=== PATIENT | female | born 1980 | race Caucasian/White ===

== ENCOUNTER 2021-01-04 19:39 | Inpatient (IN) | payer BC ==
[2021-01-04] MEDS ORDERED: Nalbuphine 10 MG/1 ML Vial IVPUSH PRN (19:55)
[2021-01-04] MEDS ORDERED: Lidocaine 1% 50 ML MDV INJECT PRN (19:55)
[2021-01-04] MEDS ORDERED: Sodium Chloride 0.9% 10 ML SDV IV PRN (19:55)
[2021-01-04] MEDS ORDERED: Butorphanol 1 MG/ML SDV IVPUSH PRN (19:55)
[2021-01-04] MEDS ORDERED: Ondansetron 4 MG/2 ML SDV IVPUSH PRN ×2 (19:55→23:22)
[2021-01-04] MEDS ORDERED: Methylergonovine 0.2 MG/1 ML Amp IM PRN (19:55)
[2021-01-04] MEDS ORDERED: Tranexamic Acid 1,000 MG in Sodium Chloride 0.9% 100 ML IV PRN (19:55)
[2021-01-04] MEDS ORDERED: Citric Acid/Sodium Citrate Solution 30 ML Cup PO ONE (19:55)
[2021-01-04] MEDS ORDERED: Misoprostol 200 MCG Tab PO PRN (19:55)
[2021-01-04] MEDS ORDERED: Water For Irrigation,Sterile 1,000 ML Container IRR PRN (19:55)
[2021-01-04] MEDS ORDERED: ceFAZolin 2 GM in Premix Bag 1 BAG IV ONE (19:55)
[2021-01-04] MEDS ORDERED: Carboprost Tromethamine 250 MCG/1 ML Amp IM PRN (19:55)
[2021-01-04] MEDS ORDERED: Lactated Ringers 1,000 ML IV SCH (20:00)
[2021-01-04] MEDS ORDERED: Oxytocin/0.9 % Sodium Chloride 30 UNIT/500 ML BAG IV SCH ×2 (20:00)
[2021-01-04] MEDS: Lactated Ringers 1,000 ML IV SCH ×2 (20:32→21:29)
[2021-01-04] MEDS ORDERED: Morphine PF 10 MG/10 ML SDV ONE (21:39)
[2021-01-04] MEDS ORDERED: fentaNYL 100 MCG/2 ML SDV ONE (21:39)
[2021-01-04] MEDS ORDERED: Sodium Chloride 0.9% 20 ML ONE (22:19)
[2021-01-04] MEDS ORDERED: ceFAZolin 1 GM Vial ONE (22:19)
[2021-01-04] MEDS ORDERED: Oxytocin 10 Units/1 ML SDV ONE (22:58)
[2021-01-04] MEDS ORDERED: Ondansetron 4 MG/2 ML SDV ONE (22:58)
[2021-01-04] MEDS ORDERED: Ketorolac 30 MG/ML SDV ONE (22:58)
[2021-01-04] MEDS ORDERED: Acetaminophen/oxyCODONE 325-5 MG Tab PO PRN (23:22)
[2021-01-04] MEDS ORDERED: Bisacodyl 10 MG Supp RECTAL PRN (23:22)
[2021-01-04] MEDS ORDERED: Ibuprofen 800 MG Tab PO PRN (23:22)
[2021-01-04] MEDS ORDERED: Lanolin 100% Cream 7 GM Tube TOP PRN (23:22)
[2021-01-04] MEDS ORDERED: diphenhydrAMINE 50 MG/ML SDV IVPUSH PRN (23:22)
--- NOTE | 2021-01-04 23:25 | PCM.OPNOTE ---
<Blossom Morales - Last Filed: 01/04/21 23:20> - General Post-Op/Procedure Note Date of Surgery/Procedure: 01/04/21 Operative Procedure(s): Repeat section x6, perfomed before originally scheduled due to SROM Findings: Live male infant, cephalic presentation, 3540g, apgars 6 and 9 Placenta intact, 3 vessel cord Normal appearing uterus, ovaries, and tubes Pre Op Diagnosis: 40yo F, 39w1d gestation repeat x6 Post-Op Diagnosis: Same Anesthesia Technique: Spinal Primary Surgeon: Clari Cruz Secondary Surgeon: Kierra Singh Anesthesia Provider: Andi Mo Bpm Solution Architect: Blossom Morales Pathology: placenta Fluid Replacement, Intraop: 1,500 Output, Urine Amount: 200 EBL in mLs: 600 Complications: None Condition: Good Free Text/Narrative:: Ancef 2g IV for prophylaxis <Clari Cruz - Last Filed: 01/04/21 23:35> - General Post-Op/Procedure Note Findings: Nuchal cord x1 Moderate adhesions of rectus muscles and omentum to fascia Pre Op Diagnosis: Spontaneous rupture of membranes. Advanced maternal age. Gestational diabetes on Metformin. Bicornuate uterus. History of bilateral tubal ligation s/p reversal. GBS negative Post-Op Diagnosis: Same Pathology: Cord blood and gases Complications: None Free Text/Narrative:: Intake & Output 01/04/21 01/04/21 01/05/21 14:59 22:59 06:59 Intake Total 1500 Output Total 200 Balance 1300 Surgicel placed on rectus muscles. Rh negative, Rhogam ordered. I have reviewed the above and agree. Please see operative report #[id number] for further details.
[2021-01-04] MEDS ORDERED: Promethazine 25 MG/ML SDV IM PRN (23:35)
[2021-01-04] MEDS ORDERED: Promethazine 25 MG Tab PO PRN (23:35)
[2021-01-05] MEDS ORDERED: Nalbuphine 10 MG/1 ML Vial IVPUSH PRN (00:06)
[2021-01-05] MEDS ORDERED: Ondansetron 4 MG/2 ML SDV IVPUSH PRN (00:06)
[2021-01-05] MEDS ORDERED: fentaNYL 100 MCG/2 ML SDV IVPUSH PRN (00:06)
[2021-01-05] MEDS ORDERED: Naloxone 0.4 MG/ML Syringe IVPUSH PRN (00:06)
[2021-01-05] MEDS ORDERED: diphenhydrAMINE 50 MG/ML SDV IVPUSH PRN (00:06)
[2021-01-05] MEDS ORDERED: Acetaminophen/oxyCODONE 325-5 MG Tab PO PRN (00:06)
[2021-01-05] MEDS ORDERED: ePHEDrine 50 MG/ML SDV IVPUSH PRN (00:06)
--- NOTE | 2021-01-05 00:06 | PCM.PREANE ---
Preanesthetic Assessment - Anesthesia/Transfusion/Family Hx Anesthesia History: Prior Anesthesia Without Reaction Family History of Anesthesia Reaction: No Transfusion History: No Prior Transfusion(s) - Review of Systems General: No Symptoms Pulmonary: No Symptoms Cardiovascular: No Symptoms Gastrointestinal: No Symptoms Neurological: No Symptoms Other: Reports: None - Physical Assessment NPO Status Date: 01/04/21 NPO Status Time: 18:00 Height: 5 ft 6 in Weight: 200 lb ASA Class: 2E Mental Status: Alert & Oriented x3 Airway Class: Mallampati = 3 Dentition: Reports: Normal Dentition ROM/Head Extension: Full Lungs: Clear to Auscultation, Normal Respiratory Effort Cardiovascular: Regular Rate, Regular Rhythm - Lab Values: Laboratory Last Values WBC 11.96 K/uL (4.0-11.0) H 01/04/21 20: RBC 4.39 M/uL (4.30-5.90) 01/04/21 20: Hgb 12.0 g/dL (12.0-16.0) 01/04/21 20: Hct 36.1 % (36.0-46.0) 01/04/21 20: MCV 82.2 fL (80.0-98.0) 01/04/21 20: MCH 27.3 pg (27.0-32.0) 01/04/21 20: MCHC 33.2 g/dL (31.0-37.0) 01/04/21 20:26 RDW Std Deviation 42.7 fl (28.0-62.0) 01/04/21 20:26 RDW Coeff of Chung 14 % (11.0-15.0) 01/04/21 20:26 Plt Count 371 K/uL (150-400) 01/04/21 20:26 MPV 12.20 fL (7.40-12.00) H 01/04/21 20:26 Nucleated RBC % 0.0 /100WBC 01/04/21 20:26 Nucleated RBCs # 0 K/uL 01/04/21 20:26 Cord ABG pH 7.281 (7.18-7.38) 01/04/21 22:26 Cord ABG Base Excess -3 (-10--2) 01/04/21 22:26 Cord VBG pH 7.301 (7.25-7.45) 01/04/21 22:26 Cord VBG Base Excess -4 (-10--2) 01/04/21 22:26 Membrane Rupture POSITIVE 01/04/21 19:47 Blood Type O NEGATIVE 01/04/21 20:26 Antibody Screen NEGATIVE 01/04/21 20:26 - Allergies Allergies/Adverse Reactions: Allergies Allergy/AdvReac Type Severity Reaction Status Date / Time No Known Allergies Allergy Verified 01/01/21 08:27 - Blood Blood Available: Yes Product(s) Available: PRBC - Anesthesia Plan Pre-Op Medication Ordered: None - Acknowledgements Anesthesia Type Planned: Spinal Pt an Appropriate Candidate for the Planned Anesthesia: Yes Alternatives and Risks of Anesthesia Discussed w Pt/Guardian: Yes Pt/Guardian Understands and Agrees with Anesthesia Plan: Yes PreAnesthesia Questionnaire [employer] History: Reports: , Spontaneous Endocrine/Metabolic History: Reports: Diabetes, Gestational - Past Surgical History Female Surgical History: Reports: Section, Tubal Ligation Other Female Surgeries/Procedures: Tubal ligation reversal. uterine septum removal - SUBSTANCE USE Tobacco Use Status *Q: Never Tobacco User Second Hand Smoke Exposure: No Recreational Drug Use History: No - HOME MEDS Home Medications: Home Meds Omeprazole Magnesium [Prilosec Otc] 1 tab PO ASDIRECTED PRN 01/01/21 [History] Pnv No.95/Ferrous Fum/Folic AC [ Vitamin Tablet] 1 tab PO DAILY 01/01/21 [History] metFORMIN HCl [Metformin HCl] 1,000 mg PO BID 01/01/21 [History] - CURRENT (IN HOUSE) MEDS Current Meds: Current Medications Bisacodyl (Bisacodyl 10 Mg Supp) 10 mg RECTAL ONETIME PRN PRN Reason: Constipation Butorphanol Tartrate (Butorphanol 1 Mg/Ml Sdv) 1 mg IVPUSH Q1H PRN PRN Reason: Pain (severe 7-10) Carboprost Tromethamine (Carboprost Tromethamine 250 Mcg/1 Ml Amp) 250 mcg IM ASDIRECTED PRN PRN Reason: Post Hemorrhage Diphenhydramine HCl (Diphenhydramine 50 Mg/Ml Sdv) 25 mg IVPUSH Q6H PRN PRN Reason: Itching or Nausea Docusate Sodium (Docusate Sodium 100 Mg Cap) 100 mg PO BID FABIO Emollient Ointment (Lanolin 100% Cream 7 Gm Tube) 0 gm TOP ASDIRECTED PRN PRN Reason: Sore Nipples Lactated Ringer's (Ringers, Lactated) 1,000 mls @ 150 mls/hr IV ASDIRECTED [facility] Oxytocin/Sodium Chloride (Oxytocin 30 Unit/500 Ml-Ns) 30 unit in 500 mls @ 999 mls/hr IV TITRATE [facility] Tranexamic Acid 1,000 mg/ (Sodium Chloride) 110 mls @ 660 mls/hr IV ONETIME PRN PRN Reason: Bleeding Lactated Ringer's (Ringers, Lactated) 1,000 mls @ 500 mls/hr IV BOLUS [facility] Last Admin: 01/04/21 21:29 Dose: 500 mls/hr Documented by: Oxytocin/Sodium Chloride (Oxytocin 30 Unit/500 Ml-Ns) 30 unit in 500 mls @ 250 mls/hr IV TITRATE [facility] Lactated Ringer's (Ringers, Lactated) 1,000 mls @ 125 mls/hr IV ASDIRECTED [facility] Ibuprofen (Ibuprofen 800 Mg Tab) 800 mg PO Q8H PRN PRN Reason: mild pain or fever Ketorolac Tromethamine (Ketorolac 30 Mg/Ml Sdv) 30 mg IVPUSH Q6H [facility] Stop: 01/05/21 23:31 Lidocaine HCl (Lidocaine 1% 50 Ml Mdv) 50 ml INJECT ONETIME PRN PRN Reason: Laceration repair Methylergonovine Maleate (Methylergonovine 0.2 Mg/1 Ml Amp) 0.2 mg IM ASDIRECTED PRN PRN Reason: Post Hemorrhage Misoprostol (Misoprostol 200 Mcg Tab) 200 mcg PO ONETIME PRN PRN Reason: Post Hemorrhage Nalbuphine HCl (Nalbuphine 10 Mg/1 Ml Vial) 10 mg IVPUSH Q1H PRN PRN Reason: Pain (severe 7-10) Ondansetron HCl (Ondansetron 4 Mg/2 Ml Sdv) 4 mg IVPUSH Q4H PRN PRN Reason: Nausea/Vomiting Ondansetron HCl (Ondansetron 4 Mg/2 Ml Sdv) 4 mg IVPUSH Q4H PRN PRN Reason: Nausea/Vomiting Oxycodone/Acetaminophen (Acetaminophen/Oxycodone 325-5 Mg Tab) 1 tab PO Q4H PRN PRN Reason: Pain (severe 7-10) Oxycodone/Acetaminophen (Acetaminophen/Oxycodone 325-5 Mg Tab) 2 tab PO Q4H PRN PRN Reason: Pain (severe 7-10) Promethazine HCl (Promethazine 25 Mg/Ml Sdv) 25 mg IM Q6H PRN PRN Reason: Nausea/Vomiting Last Admin: 01/04/21 23:42 Dose: 25 mg Documented by: Promethazine HCl (Promethazine 25 Mg Tab) 25 mg PO Q6H PRN PRN Reason: Nausea/Vomiting Sodium Chloride (Sodium Chloride 0.9% 10 Ml Sdv) 10 ml IV ASDIRECTED PRN PRN Reason: IV Use Sterile Water (Water For Irrigation,Sterile 1,000 Ml Container) 1,000 ml IRR ASDIRECTED PRN PRN Reason: delivery Discontinued Medications Cefazolin Sodium (Cefazolin 1 Gm Vial) Confirm Administered Dose 2 gm .ROUTE .STK-MED ONE Stop: 01/04/21 22:20 Citric Acid/Sodium Citrate (Citric Acid/Sodium Citrate Solution 30 Ml Cup) 30 ml PO ONETIME ONE Stop: 01/04/21 19:56 Fentanyl (Fentanyl 100 Mcg/2 Ml Sdv) Confirm Administered Dose 100 mcg .ROUTE .STK-MED ONE Stop: 01/04/21 21:40 Cefazolin Sodium/Dextrose 2 gm (/ Premix) 50 mls @ 100 mls/hr IV ONETIME ONE Stop: 01/04/21 20:24 Sodium Chloride (Normal Saline) Confirm Administered Dose 20 mls @ as directed .ROUTE .STK-MED ONE Stop: 01/04/21 22:20 Ketorolac Tromethamine (Ketorolac 30 Mg/Ml Sdv) Confirm Administered Dose 30 mg .ROUTE .STK-MED ONE Stop: 01/04/21 22:59 Miscellaneous Medication (Phenylephrine Hcl In 0.9% Nacl 1 Mg/10 Ml Syringe) Confirm Administered Dose 1 mg .ROUTE .STK-MED ONE Stop: 01/04/21 22:59 Morphine Sulfate (Morphine Pf 10 Mg/10 Ml Sdv) Confirm Administered Dose 10 mg .ROUTE .STK-MED ONE Stop: 01/04/21 21:40 Ondansetron HCl (Ondansetron 4 Mg/2 Ml Sdv) Confirm Administered Dose 4 mg .ROUTE .STK-MED ONE Stop: 01/04/21 22:59 Oxytocin (Oxytocin 10 Units/1 Ml Sdv) Confirm Administered Dose 30 unit .ROUTE .STK-MED ONE Stop: 01/04/21 22:59
[2021-01-05] MEDS: Lactated Ringers 1,000 ML IV SCH ×2 (00:26→08:41)
--- NOTE | 2021-01-05 00:50 | OR ---
SURGEON: Clari Cruz MD DATE OF PROCEDURE: 01/04/2021 PREOPERATIVE DIAGNOSES: 1. 40-year-old, G10, P 2-3-4-5 at 39 weeks and 1 day gestation. 2. Spontaneous rupture of membranes. 3. Gestational diabetes, on metformin. 4. Advanced maternal age. 5. History of delivery x5. 6. Bicornuate uterus. 7. History of bilateral tubal ligation, status post reversal. POSTOPERATIVE DIAGNOSES: 1. 40-year-old, G10, P 3-3-4-6 at 39 weeks and 1 day gestation. 2. Spontaneous rupture of membranes. 3. Gestational diabetes, on metformin. 4. Advanced maternal age. 5. History of delivery x5. 6. Bicornuate uterus. 7. History of bilateral tubal ligation, status post reversal. PROCEDURES: 1. delivery. 2. Lysis of adhesions. PRIMARY SURGEON: Clari Cruz MD ASSISTANTS: Dr. Kierra Singh and Blossom Morales, medical student. ANESTHESIA: Spinal anesthesia by Dr. Jamie Mo. ANTIBIOTIC PROPHYLAXIS: 2 g Ancef. IV FLUIDS: 1500 mL LR. ESTIMATED BLOOD LOSS: 600 mL. URINE OUTPUT: 200 mL. FINDINGS: Live male in cephalic presentation. Apgars score 6 and 9 at one and five minutes respectively. Weight 3540 g. Placenta intact with 3-vessel cord. Moderate amount of adhesions of the fascia to the rectus muscles and omentum, bleeding of the rectus muscles. Thin lower uterine segment. INDICATIONS: This is a 40-year-old, G10, P 2-3-4-5, who presented at 39 weeks and 1 day gestation complaining of rupture of membranes. Upon presentation, her rupture of membranes was confirmed. She was admitted to Labor and Delivery and planned for #6. The risks and benefits of the procedure were reviewed with the patient prior to surgery. DESCRIPTION OF PROCEDURE: The patient was taken to the operating room where spinal anesthesia was obtained without difficulty. She was placed in the dorsal supine position with leftward tilt. She was prepared and draped in a normal sterile fashion. A Pfannenstiel skin incision was made using the previous scar with a scalpel and carried through to the underlying layer of fascia. Fascia was incised in the midline. Incision extended laterally with curved Agarwal scissors. Superior aspect of the fascial incision was grasped with Mer clamps, elevated, and underlying rectus muscles dissected off bluntly and with curved Agarwal scissors. In a similar fashion, the inferior aspect of the fascial incision was grasped with Mer clamps, elevated, and underlying rectus muscle was dissected off bluntly with curved Agarwal scissors. There was a peritoneal defect in the midline through which omentum was protruding. The peritoneum was extended using a combination of sharp dissection and blunt dissection. Superiorly, rectus adhesions to the fascia were dissected sharply with the curved Agarwal scissors, ensuring that no bowel or omentum were involved. A large Hal retractor was placed. A bladder flap was created in the usual fashion. A low uterine hysterotomy was created with a scalpel and the incision extended with manual traction. The 's head was brought through the hysterotomy and delivered without difficulty. The 's head was brought through the hysterotomy and was delivered followed quickly by the shoulders and remainder of the body. Nuchal cord x1 was reduced after delivery of body. After approximately 15 seconds, the cord was clamped and cut. Infant handed off to the awaiting nurse, respiratory therapist, and automotive starter repairer. Cord blood and cord gases were obtained. Placenta then delivered via uterine massage and gentle traction on the cord. The uterus was cleared of all clots and debris. The hysterotomy was repaired with a running lock stitch of 0 Vicryl suture. A 2nd stitch of the same suture was used to obtain hemostasis. The hysterotomy was inspected and noted to be hemostatic. All the gutters were cleared of clot. The peritoneum and rectus muscles were repaired with a running stitch of 3-0 Vicryl suture. Rectus muscles were inspected and noted to be oozing in multiple sites. Hemostasis was obtained with a combination of Bovie, manual pressure, and Surgicel placement. The fascia was closed with two stitches of 0 Vicryl suture meeting in the midline. Subcutaneous tissue was closed with a running stitch of 0 Vicryl suture. The skin was closed with 4-0 Monocryl in a subcuticular fashion. All sponge, lap, needle counts were correct x3. The patient and infant tolerated the delivery well. [id number] / MODL /[id number] DAVID
[2021-01-05] MEDS: Ketorolac 30 MG/ML SDV IVPUSH SCH ×5 (04:53→23:26)
--- NOTE | 2021-01-05 08:11 | PCM.PNPP ---
<AndrewBlossom - Last Filed: 01/05/21 08:05> - General Info Date of Service: 01/05/21 Admission Dx/Problem (Free Text): Repeat x6 following SROM Subjective Update: Pt is doing well. Pain is controlled. She has not ambulated yet today. Has Chicas in. No nausea/fever/chills/CP/SOB Functional Status: Reports: Pain Controlled - Review of Systems General: Reports: Night Sweats Pulmonary: Reports: No Symptoms Cardiovascular: Reports: No Symptoms Gastrointestinal: Reports: No Symptoms Genitourinary: Reports: No Symptoms Skin: Reports: No Symptoms - General Info Date of Service: 01/05/21 - Patient Data Weight - Most Recent: 200 lb I&O - Last 24 Hours: Intake & Output 01/04/21 01/05/21 01/05/21 22:59 06:59 14:59 Intake Total 2400 Output Total 700 Balance 1700 Lab Results - Last 24 Hours: Laboratory Results - last 24 hr 01/04/21 01/04/21 01/04/21 Range/Units 19:47 20:26 20:26 WBC 11.96 H (4.0-11.0) K/uL RBC 4.39 (4.30-5.90) M/uL Hgb 12.0 (12.0-16.0) g/dL Hct 36.1 (36.0-46.0) % MCV 82.2 (80.0-98.0) fL MCH 27.3 (27.0-32.0) pg MCHC 33.2 (31.0-37.0) g/dL RDW Std Deviation 42.7 (28.0-62.0) fl RDW Coeff of Chung 14 (11.0-15.0) % Plt Count 371 (150-400) K/uL MPV 12.20 H (7.40-12.00) fL Nucleated RBC % 0.0 /100WBC Nucleated RBCs # 0 K/uL Cord ABG pH (7.18-7.38) Cord ABG Base Excess (-10--2) Cord VBG pH (7.25-7.45) Cord VBG Base Excess (-10--2) Membrane Rupture POSITIVE Blood Type O NEGATIVE Antibody Screen NEGATIVE Screen (NEGATIVE) RhIG Candidate? Rhogam Indicated 01/04/21 01/04/21 01/05/21 Range/Units 22:26 23:35 06:34 WBC (4.0-11.0) K/uL RBC (4.30-5.90) M/uL Hgb 10.2 L (12.0-16.0) g/dL Hct 30.7 L (36.0-46.0) % MCV (80.0-98.0) fL MCH (27.0-32.0) pg MCHC (31.0-37.0) g/dL RDW Std Deviation (28.0-62.0) fl RDW Coeff of Chung (11.0-15.0) % Plt Count (150-400) K/uL MPV (7.40-12.00) fL Nucleated RBC % /100WBC Nucleated RBCs # K/uL Cord ABG pH 7.281 (7.18-7.38) Cord ABG Base Excess -3 (-10--2) Cord VBG pH 7.301 (7.25-7.45) Cord VBG Base Excess -4 (-10--2) Membrane Rupture Blood Type Antibody Screen Screen NEGATIVE (NEGATIVE) RhIG Candidate? YES Rhogam Indicated YES, BABY RH POS H Med Orders - Current: Current Medications Bisacodyl (Bisacodyl 10 Mg Supp) 10 mg RECTAL ONETIME PRN PRN Reason: Constipation Butorphanol Tartrate (Butorphanol 1 Mg/Ml Sdv) 1 mg IVPUSH Q1H PRN PRN Reason: Pain (severe 7-10) Carboprost Tromethamine (Carboprost Tromethamine 250 Mcg/1 Ml Amp) 250 mcg IM ASDIRECTED PRN PRN Reason: Post Hemorrhage Diphenhydramine HCl (Diphenhydramine 50 Mg/Ml Sdv) 25 mg IVPUSH Q6H PRN PRN Reason: Itching or Nausea Diphenhydramine HCl (Diphenhydramine 50 Mg/Ml Sdv) 12.5 mg IVPUSH Q2H PRN PRN Reason: Itching Docusate Sodium (Docusate Sodium 100 Mg Cap) 100 mg PO BID FABIO Emollient Ointment (Lanolin 100% Cream 7 Gm Tube) 0 gm TOP ASDIRECTED PRN PRN Reason: Sore Nipples Ephedrine Sulfate (Ephedrine 50 Mg/Ml Sdv) 10 mg IVPUSH Q5M PRN PRN Reason: Hypotension Fentanyl (Fentanyl 100 Mcg/2 Ml Sdv) 50 mcg IVPUSH Q1H PRN PRN Reason: Pain (severe 7-10) Lactated Ringer's (Ringers, Lactated) 1,000 mls @ 150 mls/hr IV ASDIRECTED [facility] Oxytocin/Sodium Chloride (Oxytocin 30 Unit/500 Ml-Ns) 30 unit in 500 mls @ 999 mls/hr IV TITRATE [facility] Tranexamic Acid 1,000 mg/ (Sodium Chloride) 110 mls @ 660 mls/hr IV ONETIME PRN PRN Reason: Bleeding Lactated Ringer's (Ringers, Lactated) 1,000 mls @ 500 mls/hr IV BOLUS [facility] Last Admin: 01/04/21 21:29 Dose: 500 mls/hr Documented by: Oxytocin/Sodium Chloride (Oxytocin 30 Unit/500 Ml-Ns) 30 unit in 500 mls @ 250 mls/hr IV TITRATE [facility] Lactated Ringer's (Ringers, Lactated) 1,000 mls @ 125 mls/hr IV ASDIRECTED [facility] Last Admin: 01/05/21 00:26 Dose: 125 mls/hr Documented by: Ibuprofen (Ibuprofen 800 Mg Tab) 800 mg PO Q8H PRN PRN Reason: mild pain or fever Ketorolac Tromethamine (Ketorolac 30 Mg/Ml Sdv) 30 mg IVPUSH Q6H [facility] Stop: 01/05/21 23:31 Last Admin: 01/05/21 04:53 Dose: 30 mg Documented by: Lidocaine HCl (Lidocaine 1% 50 Ml Mdv) 50 ml INJECT ONETIME PRN PRN Reason: Laceration repair Methylergonovine Maleate (Methylergonovine 0.2 Mg/1 Ml Amp) 0.2 mg IM ASDIRECTED PRN PRN Reason: Post Hemorrhage Misoprostol (Misoprostol 200 Mcg Tab) 200 mcg PO ONETIME PRN PRN Reason: Post Hemorrhage Nalbuphine HCl (Nalbuphine 10 Mg/1 Ml Vial) 10 mg IVPUSH Q1H PRN PRN Reason: Pain (severe 7-10) Nalbuphine HCl (Nalbuphine 10 Mg/1 Ml Vial) 5 mg IVPUSH ASDIRECTED PRN PRN Reason: Itching Naloxone HCl (Naloxone 0.4 Mg/Ml Syringe) 0.1 mg IVPUSH ONETIME PRN PRN Reason: Respiratory Depression Stop: 01/06/21 00:06 Ondansetron HCl (Ondansetron 4 Mg/2 Ml Sdv) 4 mg IVPUSH Q4H PRN PRN Reason: Nausea/Vomiting Ondansetron HCl (Ondansetron 4 Mg/2 Ml Sdv) 4 mg IVPUSH Q4H PRN PRN Reason: Nausea/Vomiting Ondansetron HCl (Ondansetron 4 Mg/2 Ml Sdv) 4 mg IVPUSH Q6H PRN PRN Reason: Nausea Oxycodone/Acetaminophen (Acetaminophen/Oxycodone 325-5 Mg Tab) 1 tab PO Q4H PRN PRN Reason: Pain (severe 7-10) Oxycodone/Acetaminophen (Acetaminophen/Oxycodone 325-5 Mg Tab) 2 tab PO Q4H PRN PRN Reason: Pain (severe 7-10) Oxycodone/Acetaminophen (Acetaminophen/Oxycodone 325-5 Mg Tab) 2 tab PO Q6H PRN PRN Reason: Pain (moderate 4-6) Promethazine HCl (Promethazine 25 Mg/Ml Sdv) 25 mg IM Q6H PRN PRN Reason: Nausea/Vomiting Last Admin: 01/04/21 23:42 Dose: 25 mg Documented by: Promethazine HCl (Promethazine 25 Mg Tab) 25 mg PO Q6H PRN PRN Reason: Nausea/Vomiting Sodium Chloride (Sodium Chloride 0.9% 10 Ml Sdv) 10 ml IV ASDIRECTED PRN PRN Reason: IV Use Sterile Water (Water For Irrigation,Sterile 1,000 Ml Container) 1,000 ml IRR ASDIRECTED PRN PRN Reason: delivery Discontinued Medications Cefazolin Sodium (Cefazolin 1 Gm Vial) Confirm Administered Dose 2 gm .ROUTE .STK-MED ONE Stop: 01/04/21 22:20 Citric Acid/Sodium Citrate (Citric Acid/Sodium Citrate Solution 30 Ml Cup) 30 ml PO ONETIME ONE Stop: 01/04/21 19:56 Fentanyl (Fentanyl 100 Mcg/2 Ml Sdv) Confirm Administered Dose 100 mcg .ROUTE .STK-MED ONE Stop: 01/04/21 21:40 Cefazolin Sodium/Dextrose 2 gm (/ Premix) 50 mls @ 100 mls/hr IV ONETIME ONE Stop: 01/04/21 20:24 Sodium Chloride (Normal Saline) Confirm Administered Dose 20 mls @ as directed .ROUTE .STK-MED ONE Stop: 01/04/21 22:20 Ketorolac Tromethamine (Ketorolac 30 Mg/Ml Sdv) Confirm Administered Dose 30 mg .ROUTE .STK-MED ONE Stop: 01/04/21 22:59 Miscellaneous Medication (Phenylephrine Hcl In 0.9% Nacl 1 Mg/10 Ml Syringe) Confirm Administered Dose 1 mg .ROUTE .STK-MED ONE Stop: 01/04/21 22:59 Morphine Sulfate (Morphine Pf 10 Mg/10 Ml Sdv) Confirm Administered Dose 10 mg .ROUTE .STK-MED ONE Stop: 01/04/21 21:40 Ondansetron HCl (Ondansetron 4 Mg/2 Ml Sdv) Confirm Administered Dose 4 mg .ROUTE .STK-MED ONE Stop: 01/04/21 22:59 Oxytocin (Oxytocin 10 Units/1 Ml Sdv) Confirm Administered Dose 30 unit .ROUTE .STK-MED ONE Stop: 01/04/21 22:59 - Interaction Infant Disposition, : to Nursery Infant Feeding: Breastfed ; Nursed Well Other Infant Feeding: Formula Support Person: - Recovery Exam Fundal Tone: Firm Fundal Level: 2 Fingerbreadths Below Umbilicus Fundal Placement: Midline Lochia Amount: Small Lochia Color: Rubra/Red Perineum Description: Intact, Minimal Bruising/Swelling Episiotomy/Laceration: None Bladder Status: Indwelling Catheter in Place Urinary Elimination: Indwelling Catheter - Exam General: Alert, Oriented Extremities: Normal Inspection, Normal Range of Motion, Non-Tender, No Pedal Edema, Normal Capillary Refill Skin: Warm, Dry, Intact Wound/Incisions: Healing Well - Problem List & Annotations (1) Status post repeat low transverse section SNOMED Code(s): 687320238, 35822604, 715901058, [id number], [id number] Code(s): Z98.891 - HISTORY OF UTERINE SCAR FROM PREVIOUS SURGERY Status: Acute Current Visit: Yes - Problem List Review Problem List Initiated/Reviewed/Updated: Yes - Assessment Assessment:: Pt is a 40yo F s/p repeat x6. Recovering well - Plan Plan:: Routine care Encourage ambulation Discontinue Chicas Diet as tolerated Plan for discharge tomorrow <Kierra Singh - Last Filed: 01/05/21 09:39> - Patient Data Vital Signs - Most Recent: Last Vital Signs Temp 98.5 F 01/05/21 08:00 Pulse 86 01/05/21 08:00 Resp 18 01/05/21 08:00 BP 111/68 01/05/21 08:00 Pulse Ox 99 01/05/21 08:00 I&O - Last 24 Hours: Intake & Output 01/04/21 01/05/21 01/05/21 22:59 06:59 14:59 Intake Total 2400 Output Total 700 Balance 1700 Lab Results - Last 24 Hours: Laboratory Results - last 24 hr 01/04/21 01/04/21 01/04/21 Range/Units 19:47 20:26 20:26 WBC 11.96 H (4.0-11.0) K/uL RBC 4.39 (4.30-5.90) M/uL Hgb 12.0 (12.0-16.0) g/dL Hct 36.1 (36.0-46.0) % MCV 82.2 (80.0-98.0) fL MCH 27.3 (27.0-32.0) pg MCHC 33.2 (31.0-37.0) g/dL RDW Std Deviation 42.7 (28.0-62.0) fl RDW Coeff of Chung 14 (11.0-15.0) % Plt Count 371 (150-400) K/uL MPV 12.20 H (7.40-12.00) fL Nucleated RBC % 0.0 /100WBC Nucleated RBCs # 0 K/uL Cord ABG pH (7.18-7.38) Cord ABG Base Excess (-10--2) Cord VBG pH (7.25-7.45) Cord VBG Base Excess (-10--2) Membrane Rupture POSITIVE Blood Type O NEGATIVE Antibody Screen NEGATIVE Screen (NEGATIVE) RhIG Candidate? Rhogam Indicated 07/29/21 07/29/21 07/30/21 Range/Units 22:26 23:35 06:34 WBC (4.0-11.0) K/uL RBC (4.30-5.90) M/uL Hgb 10.2 L (12.0-16.0) g/dL Hct 30.7 L (36.0-46.0) % MCV (80.0-98.0) fL MCH (27.0-32.0) pg MCHC (31.0-37.0) g/dL RDW Std Deviation (28.0-62.0) fl RDW Coeff of Chung (11.0-15.0) % Plt Count (150-400) K/uL MPV (7.40-12.00) fL Nucleated RBC % /100WBC Nucleated RBCs # K/uL Cord ABG pH 7.281 (7.18-7.38) Cord ABG Base Excess -3 (-10--2) Cord VBG pH 7.301 (7.25-7.45) Cord VBG Base Excess -4 (-10--2) Membrane Rupture Blood Type Antibody Screen Screen NEGATIVE (NEGATIVE) RhIG Candidate? YES Rhogam Indicated YES, BABY RH POS H Med Orders - Current: Current Medications Bisacodyl (Bisacodyl 10 Mg Supp) 10 mg RECTAL ONETIME PRN PRN Reason: Constipation Butorphanol Tartrate (Butorphanol 1 Mg/Ml Sdv) 1 mg IVPUSH Q1H PRN PRN Reason: Pain (severe 7-10) Carboprost Tromethamine (Carboprost Tromethamine 250 Mcg/1 Ml Amp) 250 mcg IM ASDIRECTED PRN PRN Reason: Post Hemorrhage Diphenhydramine HCl (Diphenhydramine 50 Mg/Ml Sdv) 25 mg IVPUSH Q6H PRN PRN Reason: Itching or Nausea Diphenhydramine HCl (Diphenhydramine 50 Mg/Ml Sdv) 12.5 mg IVPUSH Q2H PRN PRN Reason: Itching Docusate Sodium (Docusate Sodium 100 Mg Cap) 100 mg PO BID FABIO Emollient Ointment (Lanolin 100% Cream 7 Gm Tube) 0 gm TOP ASDIRECTED PRN PRN Reason: Sore Nipples Ephedrine Sulfate (Ephedrine 50 Mg/Ml Sdv) 10 mg IVPUSH Q5M PRN PRN Reason: Hypotension Fentanyl (Fentanyl 100 Mcg/2 Ml Sdv) 50 mcg IVPUSH Q1H PRN PRN Reason: Pain (severe 7-10) Lactated Ringer's (Ringers, Lactated) 1,000 mls @ 150 mls/hr IV ASDIRECTED [facility] Oxytocin/Sodium Chloride (Oxytocin 30 Unit/500 Ml-Ns) 30 unit in 500 mls @ 999 mls/hr IV TITRATE [facility] Tranexamic Acid 1,000 mg/ (Sodium Chloride) 110 mls @ 660 mls/hr IV ONETIME PRN PRN Reason: Bleeding Lactated Ringer's (Ringers, Lactated) 1,000 mls @ 500 mls/hr IV BOLUS [facility] Last Admin: 01/04/21 21:29 Dose: 500 mls/hr Documented by: Oxytocin/Sodium Chloride (Oxytocin 30 Unit/500 Ml-Ns) 30 unit in 500 mls @ 250 mls/hr IV TITRATE [facility] Lactated Ringer's (Ringers, Lactated) 1,000 mls @ 125 mls/hr IV ASDIRECTED [facility] Last Admin: 01/05/21 08:41 Dose: 125 mls/hr Documented by: Ibuprofen (Ibuprofen 800 Mg Tab) 800 mg PO Q8H PRN PRN Reason: mild pain or fever Ketorolac Tromethamine (Ketorolac 30 Mg/Ml Sdv) 30 mg IVPUSH Q6H [facility] Stop: 01/05/21 23:31 Last Admin: 01/05/21 04:53 Dose: 30 mg Documented by: Lidocaine HCl (Lidocaine 1% 50 Ml Mdv) 50 ml INJECT ONETIME PRN PRN Reason: Laceration repair Methylergonovine Maleate (Methylergonovine 0.2 Mg/1 Ml Amp) 0.2 mg IM ASDIRECTED PRN PRN Reason: Post Hemorrhage Misoprostol (Misoprostol 200 Mcg Tab) 200 mcg PO ONETIME PRN PRN Reason: Post Hemorrhage Nalbuphine HCl (Nalbuphine 10 Mg/1 Ml Vial) 10 mg IVPUSH Q1H PRN PRN Reason: Pain (severe 7-10) Nalbuphine HCl (Nalbuphine 10 Mg/1 Ml Vial) 5 mg IVPUSH ASDIRECTED PRN PRN Reason: Itching Naloxone HCl (Naloxone 0.4 Mg/Ml Syringe) 0.1 mg IVPUSH ONETIME PRN PRN Reason: Respiratory Depression Stop: 01/06/21 00:06 Ondansetron HCl (Ondansetron 4 Mg/2 Ml Sdv) 4 mg IVPUSH Q4H PRN PRN Reason: Nausea/Vomiting Ondansetron HCl (Ondansetron 4 Mg/2 Ml Sdv) 4 mg IVPUSH Q4H PRN PRN Reason: Nausea/Vomiting Ondansetron HCl (Ondansetron 4 Mg/2 Ml Sdv) 4 mg IVPUSH Q6H PRN PRN Reason: Nausea Oxycodone/Acetaminophen (Acetaminophen/Oxycodone 325-5 Mg Tab) 1 tab PO Q4H PRN PRN Reason: Pain (severe 7-10) Oxycodone/Acetaminophen (Acetaminophen/Oxycodone 325-5 Mg Tab) 2 tab PO Q4H PRN PRN Reason: Pain (severe 7-10) Oxycodone/Acetaminophen (Acetaminophen/Oxycodone 325-5 Mg Tab) 2 tab PO Q6H PRN PRN Reason: Pain (moderate 4-6) Promethazine HCl (Promethazine 25 Mg/Ml Sdv) 25 mg IM Q6H PRN PRN Reason: Nausea/Vomiting Last Admin: 01/04/21 23:42 Dose: 25 mg Documented by: Promethazine HCl (Promethazine 25 Mg Tab) 25 mg PO Q6H PRN PRN Reason: Nausea/Vomiting Sodium Chloride (Sodium Chloride 0.9% 10 Ml Sdv) 10 ml IV ASDIRECTED PRN PRN Reason: IV Use Sterile Water (Water For Irrigation,Sterile 1,000 Ml Container) 1,000 ml IRR ASDIRECTED PRN PRN Reason: delivery Discontinued Medications Cefazolin Sodium (Cefazolin 1 Gm Vial) Confirm Administered Dose 2 gm .ROUTE .STK-MED ONE Stop: 01/04/21 22:20 Citric Acid/Sodium Citrate (Citric Acid/Sodium Citrate Solution 30 Ml Cup) 30 ml PO ONETIME ONE Stop: 01/04/21 19:56 Fentanyl (Fentanyl 100 Mcg/2 Ml Sdv) Confirm Administered Dose 100 mcg .ROUTE .STK-MED ONE Stop: 01/04/21 21:40 Cefazolin Sodium/Dextrose 2 gm (/ Premix) 50 mls @ 100 mls/hr IV ONETIME ONE Stop: 01/04/21 20:24 Sodium Chloride (Normal Saline) Confirm Administered Dose 20 mls @ as directed .ROUTE .STK-MED ONE Stop: 01/04/21 22:20 Ketorolac Tromethamine (Ketorolac 30 Mg/Ml Sdv) Confirm Administered Dose 30 mg .ROUTE .STK-MED ONE Stop: 01/04/21 22:59 Miscellaneous Medication (Phenylephrine Hcl In 0.9% Nacl 1 Mg/10 Ml Syringe) Confirm Administered Dose 1 mg .ROUTE .STK-MED ONE Stop: 01/04/21 22:59 Morphine Sulfate (Morphine Pf 10 Mg/10 Ml Sdv) Confirm Administered Dose 10 mg .ROUTE .STK-MED ONE Stop: 01/04/21 21:40 Ondansetron HCl (Ondansetron 4 Mg/2 Ml Sdv) Confirm Administered Dose 4 mg .ROUTE .STK-MED ONE Stop: 01/04/21 22:59 Oxytocin (Oxytocin 10 Units/1 Ml Sdv) Confirm Administered Dose 30 unit .ROUTE . STK-MED ONE Stop: 01/04/21 22:59 - Plan Plan:: Pain well controlled. UOP low-normal range. IVF running. Patient tolerating regular diet. Encouraged increasing fluid intake. Plans to bottle feed and pump. Continues cares today and anticipate discharge POD #2-3 pending maternal/infant status.
[2021-01-05] MEDS: Docusate Sodium 100 MG Cap PO SCH ×2 (10:59→22:43)
--- NOTE | 2021-01-06 06:54 | PCM.PNPP ---
- General Info Date of Service: 01/06/21 Admission Dx/Problem (Free Text): Repeat x6 following SROM Subjective Update: Resting comfortably in bed during rounds. Pain well controlled. Ambulating and voiding without difficulty. Lochia decreasing. Reports mild cough, otherwise cold symptoms have resolved. Bottle feeding and pumping - General Info Date of Service: 01/06/21 - Patient Data Vital Signs - Most Recent: Last Vital Signs Temp 98.6 F 01/06/21 04:17 Pulse 99 01/05/21 23:30 Resp 15 01/06/21 04:17 BP 113/71 01/06/21 04:17 Pulse Ox 100 01/06/21 04:17 Weight - Most Recent: 200 lb I&O - Last 24 Hours: Intake & Output 01/05/21 01/05/21 01/06/21 14:59 22:59 06:59 Intake Total 3500 Output Total 3050 Balance 450 Lab Results - Last 24 Hours: Laboratory Results - last 24 hr 01/05/21 Range/Units 06:34 Hgb 10.2 L (12.0-16.0) g/dL Hct 30.7 L (36.0-46.0) % Med Orders - Current: Current Medications Bisacodyl (Bisacodyl 10 Mg Supp) 10 mg RECTAL ONETIME PRN PRN Reason: Constipation Butorphanol Tartrate (Butorphanol 1 Mg/Ml Sdv) 1 mg IVPUSH Q1H PRN PRN Reason: Pain (severe 7-10) Carboprost Tromethamine (Carboprost Tromethamine 250 Mcg/1 Ml Amp) 250 mcg IM ASDIRECTED PRN PRN Reason: Post Hemorrhage Diphenhydramine HCl (Diphenhydramine 50 Mg/Ml Sdv) 25 mg IVPUSH Q6H PRN PRN Reason: Itching or Nausea Diphenhydramine HCl (Diphenhydramine 50 Mg/Ml Sdv) 12.5 mg IVPUSH Q2H PRN PRN Reason: Itching Docusate Sodium (Docusate Sodium 100 Mg Cap) 100 mg PO BID FABIO Last Admin: 01/05/21 22:43 Dose: Not Given Documented by: Emollient Ointment (Lanolin 100% Cream 7 Gm Tube) 0 gm TOP ASDIRECTED PRN PRN Reason: Sore Nipples Ephedrine Sulfate (Ephedrine 50 Mg/Ml Sdv) 10 mg IVPUSH Q5M PRN PRN Reason: Hypotension Fentanyl (Fentanyl 100 Mcg/2 Ml Sdv) 50 mcg IVPUSH Q1H PRN PRN Reason: Pain (severe 7-10) Lactated Ringer's (Ringers, Lactated) 1,000 mls @ 150 mls/hr IV ASDIRECTED [facility] Oxytocin/Sodium Chloride (Oxytocin 30 Unit/500 Ml-Ns) 30 unit in 500 mls @ 999 mls/hr IV TITRATE [facility] Tranexamic Acid 1,000 mg/ (Sodium Chloride) 110 mls @ 660 mls/hr IV ONETIME PRN PRN Reason: Bleeding Lactated Ringer's (Ringers, Lactated) 1,000 mls @ 500 mls/hr IV BOLUS [facility] Last Admin: 01/04/21 21:29 Dose: 500 mls/hr Documented by: Oxytocin/Sodium Chloride (Oxytocin 30 Unit/500 Ml-Ns) 30 unit in 500 mls @ 250 mls/hr IV TITRATE [facility] Lactated Ringer's (Ringers, Lactated) 1,000 mls @ 125 mls/hr IV ASDIRECTED [facility] Last Admin: 01/05/21 08:41 Dose: 125 mls/hr Documented by: Ibuprofen (Ibuprofen 800 Mg Tab) 800 mg PO Q8H PRN PRN Reason: mild pain or fever Lidocaine HCl (Lidocaine 1% 50 Ml Mdv) 50 ml INJECT ONETIME PRN PRN Reason: Laceration repair Methylergonovine Maleate (Methylergonovine 0.2 Mg/1 Ml Amp) 0.2 mg IM ASDIRECTED PRN PRN Reason: Post Hemorrhage Misoprostol (Misoprostol 200 Mcg Tab) 200 mcg PO ONETIME PRN PRN Reason: Post Hemorrhage Nalbuphine HCl (Nalbuphine 10 Mg/1 Ml Vial) 10 mg IVPUSH Q1H PRN PRN Reason: Pain (severe 7-10) Nalbuphine HCl (Nalbuphine 10 Mg/1 Ml Vial) 5 mg IVPUSH ASDIRECTED PRN PRN Reason: Itching Ondansetron HCl (Ondansetron 4 Mg/2 Ml Sdv) 4 mg IVPUSH Q4H PRN PRN Reason: Nausea/Vomiting Ondansetron HCl (Ondansetron 4 Mg/2 Ml Sdv) 4 mg IVPUSH Q4H PRN PRN Reason: Nausea/Vomiting Ondansetron HCl (Ondansetron 4 Mg/2 Ml Sdv) 4 mg IVPUSH Q6H PRN PRN Reason: Nausea Oxycodone/Acetaminophen (Acetaminophen/Oxycodone 325-5 Mg Tab) 1 tab PO Q4H PRN PRN Reason: Pain (severe 7-10) Oxycodone/Acetaminophen (Acetaminophen/Oxycodone 325-5 Mg Tab) 2 tab PO Q4H PRN PRN Reason: Pain (severe 7-10) Oxycodone/Acetaminophen (Acetaminophen/Oxycodone 325-5 Mg Tab) 2 tab PO Q6H PRN PRN Reason: Pain (moderate 4-6) Promethazine HCl (Promethazine 25 Mg/Ml Sdv) 25 mg IM Q6H PRN PRN Reason: Nausea/Vomiting Last Admin: 01/04/21 23:42 Dose: 25 mg Documented by: Promethazine HCl (Promethazine 25 Mg Tab) 25 mg PO Q6H PRN PRN Reason: Nausea/Vomiting Sodium Chloride (Sodium Chloride 0.9% 10 Ml Sdv) 10 ml IV ASDIRECTED PRN PRN Reason: IV Use Sterile Water (Water For Irrigation,Sterile 1,000 Ml Container) 1,000 ml IRR ASDIRECTED PRN PRN Reason: delivery Discontinued Medications Cefazolin Sodium (Cefazolin 1 Gm Vial) Confirm Administered Dose 2 gm .ROUTE .STK-MED ONE Stop: 01/04/21 22:20 Citric Acid/Sodium Citrate (Citric Acid/Sodium Citrate Solution 30 Ml Cup) 30 ml PO ONETIME ONE Stop: 01/04/21 19:56 Fentanyl (Fentanyl 100 Mcg/2 Ml Sdv) Confirm Administered Dose 100 mcg .ROUTE .STK-MED ONE Stop: 01/04/21 21:40 Cefazolin Sodium/Dextrose 2 gm (/ Premix) 50 mls @ 100 mls/hr IV ONETIME ONE Stop: 01/04/21 20:24 Last Admin: 01/05/21 11:14 Dose: Not Given Documented by: Sodium Chloride (Normal Saline) Confirm Administered Dose 20 mls @ as directed .ROUTE .STK-MED ONE Stop: 01/04/21 22:20 Ketorolac Tromethamine (Ketorolac 30 Mg/Ml Sdv) Confirm Administered Dose 30 mg .ROUTE .STK-MED ONE Stop: 01/04/21 22:59 Ketorolac Tromethamine (Ketorolac 30 Mg/Ml Sdv) 30 mg IVPUSH Q6H [facility] Stop: 01/05/21 23:31 Last Admin: 01/05/21 23:26 Dose: 30 mg Documented by: Miscellaneous Medication (Phenylephrine Hcl In 0.9% Nacl 1 Mg/10 Ml Syringe) Confirm Administered Dose 1 mg .ROUTE .STK-MED ONE Stop: 01/04/21 22:59 Morphine Sulfate (Morphine Pf 10 Mg/10 Ml Sdv) Confirm Administered Dose 10 mg .ROUTE .STK-MED ONE Stop: 01/04/21 21:40 Naloxone HCl (Naloxone 0.4 Mg/Ml Syringe) 0.1 mg IVPUSH ONETIME PRN PRN Reason: Respiratory Depression Stop: 01/06/21 00:06 Ondansetron HCl (Ondansetron 4 Mg/2 Ml Sdv) Confirm Administered Dose 4 mg .ROUTE .STK-MED ONE Stop: 01/04/21 22:59 Oxytocin (Oxytocin 10 Units/1 Ml Sdv) Confirm Administered Dose 30 unit .ROUTE .STK-MED ONE Stop: 01/04/21 22:59 - Infant Interaction Infant Disposition, : [place] to Nursery Feeding: Bottle Fed , Other (see below) (pumping for baby) Other Feeding: Formula Support Person: - Recovery Exam Fundal Tone: Firm Fundal Level: 1 Fingerbreadths Below Umbilicus Fundal Placement: Midline Lochia Amount: Scant Lochia Color: Rubra/Red Perineum Description: Intact, Minimal Bruising/Swelling Episiotomy/Laceration: None Bladder Status: Voiding Urinary Elimination: Indwelling Catheter - Exam General: Alert Lungs: Normal Respiratory Effort Cardiovascular: Regular Rate GI/Abdominal Exam: Soft, Tender (mild, diffuse. Appropriate postoperatively) Extremities: Normal Inspection, Normal Range of Motion, Non-Tender, No Pedal Edema Skin: Warm, Dry, Intact Wound/Incisions: Dressing Dry and Intact Neurological: No New Focal Deficit Psy/Mental Status: Normal Mood - Problem List Review Problem List Initiated/Reviewed/Updated: Yes - Assessment Assessment:: 40yo female POD2 s/p repeat x6 - Plan Plan:: Routine /postoperative cares * O negative, studies pending * Rubella immune, GBS negative * VSS, afebrile * PO pain medications ordered * Regular diet as tolerated * Encourage ambulation and fluid intake * Pumping and bottle feeding * Reviewed options for contraception, desires progesterone only pill. Rx sent to preferred pharmacy [id number] * Was well controlled on Metformin during * Will obtain 2hr gTT at 4 week appointment Dispo: stable. Anticipate discharge POD 2-3 pending maternal/infant status. Continue cares today.
[2021-01-06] MEDS: Acetaminophen/oxyCODONE 325-5 MG Tab PO PRN ×2 (08:34→14:02)
[2021-01-06] MEDS: Docusate Sodium 100 MG Cap PO SCH (08:35)
== END 2021-01-06 14:25 | disposition home or self-care (01) | DRG 540 ==
LOC: MW.OBCHECK 19:39 → MW.OB 19:39 → MW.OBCHECK 19:55 → MW.OB 19:55
PROVIDERS: ADMIT Obstetrics & Gynecology; ATTEND Obstetrics & Gynecology
PROC: 10D00Z1 Extraction of Products of Conception, Low, Open Approach (ICD-10-PCS; principal; 2021-01-04)
DX: O24.425 Gestational diabetes mellitus in childbirth, controlled by oral hypoglycemic drugs (principal); O65.5 Obstructed labor due to abnormality of maternal pelvic organs; O34.211 Maternal care for low transverse scar from previous cesarean delivery; O34.03 Maternal care for unspecified congenital malformation of uterus, third trimester; Q51.3 Bicornate uterus; Z3A.39 39 weeks gestation of pregnancy; Z37.0 Single live birth; Z98.51 Tubal ligation status
CPT/HCPCS: 36415; 59025; 82803; 84112; 85014; 85018; 85027; 85460; 86592; 86850; 86900; 86901; A9270-GY; J0690; J1885; J2270; J2370; J2405; J2550; J2590; J2790; J3010; J7120